=== PATIENT | female | born 1945 | race Caucasian/White ===

== ENCOUNTER 2018-01-30 07:13 | Inpatient (IN) | payer MEDICARE, BC ==
[2018-01-30] MEDS ORDERED: Sodium Chloride 0.9% 10 ML Syringe FLUSH PRN (09:12)
--- NOTE | 2018-01-30 09:18 | EDM.PDOC ---
ED HPI GENERAL MEDICAL PROBLEM - General Time Seen by Provider: 01/30/18 07:45 Source of Information: Reports: Patient History Limitations: Reports: No Limitations - History of Present Illness INITIAL COMMENTS - FREE TEXT/NARRATIVE: According to patient she has been having cough with productive sputum, sore throat and has been running fever for past 1 wk now. She was seen at [facility] on Friday and reassured that her strep test was negative and advised salt water gargles.She has been running fever intermittently all week. Fever resolves with tylenol, but soon comes back, for the past 2 days has been feeling extremely tired and also weak. She claims she gets short of breath even to do her routine daily activities. No wheezing. She does have COPD. Has had very poor appetite. No chest pain or chest tightness. Duration: Week(s): (1), Getting Worse (cough) Location: Reports: Chest Severity: Moderate Improves with: Reports: None Worsens with: Reports: None Associated Symptoms: Reports: Fever/Chills, Weakness. Denies: Confusion, Chest Pain, Cough, Diaphoresis, Nausea/Vomiting, Rash, Seizure Treatments RAKE OPERATOR: Reports: Oxygen ED ROS GENERAL - Review of Systems Review Of Systems: See Below Constitutional: Reports: Fever, Chills, Malaise, Weakness HEENT: Reports: Rhinitis, Throat Pain. Denies: Ear Pain, Throat Swelling, Vision Change Respiratory: Reports: Shortness of Breath, Cough, Sputum. Denies: Wheezing, Pleuritic Chest Pain Cardiovascular: Denies: Chest Pain, Lightheadedness GI/Abdominal: Denies: Abdominal Pain, Nausea, Vomiting : Denies: Dysuria, Flank Pain, Frequency Musculoskeletal: Reports: Muscle Pain. Denies: Shoulder Pain, Arm Pain, Joint Pain, Joint Swelling Skin: Denies: Bruising, Pruritis, Rash Neurological: Denies: Confusion, Dizziness, Headache, Numbness, Tingling ED EXAM, GENERAL - Physical Exam Exam: See Below Exam Limited By: No Limitations General Appearance: Alert, WD/WN, No Apparent Distress, Other (ill appearance) Eye Exam: Bilateral Eye: EOMI, PERRL Ears: Normal External Exam, Normal Canal, Hearing Grossly Normal, Normal TMs Ear Exam: Bilateral Ear: Auricle Normal, Canal Normal, TM normal Nose: Normal Inspection, Normal Mucosa, No Blood Throat/Mouth: Normal Inspection, Normal Lips, Normal Teeth, Normal Gums, Normal Oropharynx, Normal Voice, No Airway Compromise Head: Atraumatic, Normocephalic Neck: Normal Inspection, Supple, Non-Tender, Full Range of Motion Respiratory/Chest: No Respiratory Distress, No Accessory Muscle Use, Chest Non- Tender, Decreased Breath Sounds (right base), Crackles (right bse, more so than left) Cardiovascular: Normal Peripheral Pulses, Regular Rate, Rhythm, No Edema, No Gallop, No JVD, No Murmur, No Rub Peripheral Pulses: 2+: Carotid (L), Carotid (R), Radial (L), Radial (R) GI/Abdominal: Normal Bowel Sounds, Soft, Non-Tender, No Organomegaly, No Distention, No Abnormal Bruit, No Mass Extremities: Normal Inspection, Normal Range of Motion, Non-Tender, Normal Capillary Refill, No Pedal Edema Neurological: Alert, Oriented, CN II-XII Intact, Normal Cognition, Normal Gait, Normal Reflexes, No Motor/Sensory Deficits Skin Exam: Warm, Intact, Cyanosis (pt does haev peripehral cyanosis of the tips of the fingers) Course - Vital Signs Text/Narrative:: Pt was appearing very ill. She does have decreased air entery right base.She did have peripheral cyanosis of the finger tips. her SPO2 on room air was around 65%, secondary to peripheral cyanosis. after warming the hand and starting oxygen at 4 litres/minute. Her peripheral cyanosis did improve and her SpO2 was around 94% and after few minutes patient feeling of shortness of breath improved.She also had temp of 101.6F. Pt's Chest xray does show right lower lobe infiltrate, consistent with RLL pneumonia. Her White count is 2.9. Her CMP appears stable other than mild elevation of transaminases which could be related to viral pneumonia. As her symptoms have got worse over the week, and considering patient symptoms and her diagnosis and her peripheral cyanosis with low SPO2 pt has been planned for admission. Blood culture drawn before antibiotics.Pt has been started on Iv zithroma and Rocephin. Also have started her on duonebs for SOB. Also will keep her on Oxygen to maintain her SPO2 over 92%. I do anticipate uneventful recovery. Once her SOB resolves and she can maintain her SPO2 Over 92 % on room air will plan on discharge. Pt agrees and understand the plan Last Recorded V/S: Last Vital Signs Temp 101.6 F H 01/30/18 08:15 Pulse 123 H 01/30/18 08:15 Resp 18 01/30/18 08:15 BP 118/87 01/30/18 08:15 Pulse Ox 65 L 01/30/18 08:15 - Orders/Labs/Meds Orders: Active Orders 24 hr Category Date Time Status Chest 2V [CR] Stat Exams 01/30/18 08:09 Taken CULTURE BLOOD [BC] Stat Lab 01/30/18 09:35 Received CULTURE STREP A CONFIRMATION [RM] Stat Lab 01/30/18 08:25 Results STREP SCRN A RAPID W CULT CONF [] Stat Lab 01/30/18 08:25 Results Medication Orders Albuterol/Ipratropium (Duoneb 3.0-0.5 Mg/3 Ml) 3 ml NEB Q6H ROSANGELA Azithromycin 500 mg/ Sodium (Chloride) 250 mls @ 250 mls/hr IV Q24H ROSANGELA Ceftriaxone Sodium 1 gm/ (Sodium Chloride) 50 mls @ 200 mls/hr IV Q24H ROSANGELA Sodium Chloride (Saline Flush) 10 ml FLUSH ASDIRECTED PRN PRN Reason: Keep Vein Open Labs: Laboratory Tests 01/30/18 01/30/18 01/30/18 Range/Units 08:25 08:25 08:25 WBC 2.9 L (4.0-11.0) K/uL RBC 4.25 (3.80-5.80) M/uL Hgb 12.9 (11.5-16.5) g/dL Hct 41.3 (37.0-47.0) % MCV 97 H (76-96) fL MCH 30.4 (27.0-32.0) pg MCHC 31.2 (31.0-35.0) g/dL RDW 14.7 (11.0-16.0) % Plt Count 150 (150-500) K/uL MPV 9.6 (6.0-10.0) fL Neut % (Auto) 76.7 H (45.0-70.0) % Lymph % (Auto) 13.4 L (20.0-40.0) % [place] % (Auto) 9.2 (3.0-10.0) % Eos % (Auto) 0.0 L (1.0-5.0) % Baso % (Auto) 0.7 H (0.0-0.5) % Neut # (Auto) 2.24 (2.00-7.50) K/uL Lymph # (Auto) 0.39 L (1.50-4.00) K/uL [place] # (Auto) 0.27 (0.20-0.80) K/uL Eos # (Auto) 0.00 L (0.04-0.40) K/uL Baso # (Auto) 0.02 (0.02-0.10) K/uL Sodium 139 (136-145) mmol/L Potassium 3.4 L (3.5-5.1) mmol/L Chloride 96 L (98-107) mmol/L Carbon Dioxide 33.7 H (21.0-32.0) mmol/L Anion Gap 12.7 (5.0-15.0) mmol/L BUN 29 H (8-26) mg/dL Creatinine 0.98 (0.55-1.02) mg/dL Est Cr Clr Drug Dosing 44.81 mL/min Estimated GFR (MDRD) 56 L (>60) MLS/MIN BUN/Creatinine Ratio 29.6 H (6-25) Glucose 123 H (74-100) mg/dL Lactic Acid 1.30 (0.90-1.70) mmol/L Calcium 7.8 L (8.5-10.1) mg/dL Total Bilirubin 0.7 (0.0-1.0) mg/dL AST 71 H (15-37) U/L ALT 76 (12-78) U/L Alkaline Phosphatase 145 H (46-116) U/L Total Protein 6.8 (6.4-8.2) g/dL Albumin 3.3 L (3.4-5.0) g/dL Globulin 3.5 (2.2-4.2) g/dL Albumin/Globulin Ratio 0.9 (0.8-2.0) Meds: Medications Generic Name Dose Route Start Last Admin Trade Name Freq PRN Reason Stop Dose Admin Albuterol/Ipratropium 3 ml 01/30/18 09:30 Duoneb 3.0-0.5 Mg/3 Ml NEB Q6H ROSANGELA Azithromycin 500 mg/ Sodium 250 mls @ 250 mls/hr 01/30/18 09:30 Chloride IV Q24H [facility] Ceftriaxone Sodium 1 gm/ 50 mls @ 200 mls/hr 01/30/18 09:30 Sodium Chloride IV Q24H [facility] Sodium Chloride 10 ml 01/30/18 09:12 Saline Flush FLUSH ASDIRECTED PRN Keep Vein Open Departure - Departure Time of Disposition: 09:00 Disposition: Admitted As Inpatient 67 Condition: Fair Clinical Impression: Pneumonia involving right lung, Hypoxia - Discharge Information - Problem List & Annotations (1) Pneumonia involving right lung SNOMED Code(s): 952757496 Code(s): J18.9 - PNEUMONIA, UNSPECIFIED ORGANISM Status: Acute Current Visit: Yes - Problem List Review Problem List Initiated/Reviewed/Updated: Yes - My Orders Last 24 Hours: My Active Orders 01/30/18 08:09 Chest 2V [CR] Stat 01/30/18 08:25 CULTURE STREP A CONFIRMATION [RM] Stat STREP SCRN A RAPID W CULT CONF [RM] Stat 01/30/18 09:35 CULTURE BLOOD [BC] Stat - Assessment/Plan Last 24 Hours: My Active Orders 01/30/18 08:09 Chest 2V [CR] Stat 01/30/18 08:25 CULTURE STREP A CONFIRMATION [RM] Stat STREP SCRN A RAPID W CULT CONF [RM] Stat 01/30/18 09:35 CULTURE BLOOD [BC] Stat Assessment:: Right lower lobe pneumonia Hypoxia Plan: Pt was appearing very ill. She does have decreased air entery right base.She did have peripheral cyanosis of the finger tips. her SPO2 on room air was around 65%, secondary to peripheral cyanosis. after warming the hand and starting oxygen at 4 litres/minute. Her peripheral cyanosis did improve and her SpO2 was around 94% and after few minutes patient feeling of shortness of breath improved.She also had temp of 101.6F. Pt's Chest xray does show right lower lobe infiltrate, consistent with RLL pneumonia. Her White count is 2.9. Her CMP appears stable other than mild elevation of transaminases which could be related to viral pneumonia. As her symptoms have got worse over the week, and considering patient symptoms and her diagnosis and her peripheral cyanosis with low SPO2 pt has been planned for admission. Blood culture drawn before antibiotics.Pt has been started on Iv zithroma and Rocephin. Also have started her on duonebs for SOB. Also will keep her on Oxygen to maintain her SPO2 over 92%. I do anticipate uneventful recovery. Once her SOB resolves and she can maintain her SPO2 Over 92 % on room air will plan on discharge. Pt agrees and understand the plan
[2018-01-30] MEDS: Sodium Chloride 0.9% 1,000 ML IV SCH ×2 (10:18→21:26)
[2018-01-30] MEDS: Albuterol/Ipratropium 3.0-0.5 MG/3 ML Neb Soln NEB SCH ×3 (10:52→21:26)
[2018-01-30] MEDS: cefTRIAXone 1 GM in Sodium Chloride 0.9% 50 ML IV SCH (10:53)
[2018-01-30] MEDS: Acetaminophen 325 MG Tab PO PRN ×2 (10:57→21:33)
[2018-01-30] MEDS: Azithromycin 500 MG in Sodium Chloride 0.9% 250 ML IV SCH (11:12)
--- NOTE | 2018-01-30 11:17 | CR ---
DATE OF SERVICE: 01/30/2018 CLINICAL DATA: Cough. PA AND LATERAL CHEST: No priors. The heart is mildly enlarged. There is calcification of the aortic arch. There is increased density in the right lung base consistent with infiltrate or atelectasis. Pneumonia should be considered. No pneumothorax. No pleural effusions. [id number] [facility]
[2018-01-31] MEDS: Acetaminophen 325 MG Tab PO PRN ×3 (03:02→22:55)
[2018-01-31] MEDS: Albuterol/Ipratropium 3.0-0.5 MG/3 ML Neb Soln NEB SCH ×6 (03:03→21:00)
[2018-01-31] MEDS ORDERED: methylPREDNISolone Sodium Succinate 125 MG/2 ML SDV IVPUSH ONE (08:04)
[2018-01-31] MEDS: Levothyroxine 75 MCG Tab PO SCH (08:29)
[2018-01-31] MEDS: cefTRIAXone 1 GM in Sodium Chloride 0.9% 50 ML IV SCH (08:34)
[2018-01-31] MEDS: Azithromycin 500 MG in Sodium Chloride 0.9% 250 ML IV SCH (09:15)
[2018-01-31] MEDS: Potassium Chloride 20 MEQ Tab.ER PO SCH (16:43)
[2018-02-01] MEDS: Albuterol/Ipratropium 3.0-0.5 MG/3 ML Neb Soln NEB SCH ×6 (05:50→22:23)
[2018-02-01] MEDS: predniSONE 20 MG Tab PO SCH (06:48)
[2018-02-01] MEDS: Levothyroxine 75 MCG Tab PO SCH (06:49)
[2018-02-01] MEDS ORDERED: Furosemide 20 MG Tab PO ONE (10:25)
[2018-02-01] MEDS: Azithromycin 250 MG Tab PO SCH (10:33)
[2018-02-01] MEDS: Potassium Chloride 20 MEQ Tab.ER PO SCH (10:33)
[2018-02-01] MEDS: Acetaminophen 325 MG Tab PO PRN ×2 (10:33→22:26)
[2018-02-01] MEDS: Hydrochlorothiazide 25 MG Tab PO SCH (10:40)
[2018-02-02] MEDS: Albuterol/Ipratropium 3.0-0.5 MG/3 ML Neb Soln NEB SCH ×3 (05:38→15:22)
[2018-02-02] MEDS: Levothyroxine 75 MCG Tab PO SCH (06:36)
[2018-02-02] MEDS: predniSONE 20 MG Tab PO SCH (08:06)
[2018-02-02] MEDS: Azithromycin 250 MG Tab PO SCH (08:06)
[2018-02-02] MEDS: Potassium Chloride 20 MEQ Tab.ER PO SCH (08:07)
[2018-02-02] MEDS: Hydrochlorothiazide 25 MG Tab PO SCH (08:07)
[2018-02-02] MEDS ORDERED: Furosemide 20 MG Tab ONE (09:30)
[2018-02-02] MEDS ORDERED: Iopamidol 755 Mg/ML 100 ML Bottle IV PRN (11:26)
[2018-02-02] MEDS ORDERED: Sodium Chloride 0.9% 50 ML SDV FLUSH SCH (11:30)
--- NOTE | 2018-02-02 14:25 | CR ---
DATE OF SERVICE: 02/02/18 CLINICAL DATA: pneumonia PA AND LATERAL CHEST: Comparison is made to a prior exam dated 01/30/18. The heart size is stable. The lungs remain hyperexpanded. There are mild interstitial changes in both lower lungs. There is some minimal increased density in the right lung base, adjacent to the right hemidiaphragm, consistent with basilar atelectasis or infiltrate. No pneumothorax. No pleural effusions. [id number] [facility]
--- NOTE | 2018-02-02 15:09 | CT ---
DATE OF SERVICE: 02/02/18 CLINICAL DATA: SOB ENHANCED CHEST CT: Multislice acquisition through the chest with IV contrast was performed. No priors. No evidence of PE. No pneumothorax. No pleural effusions. No aortic aneurysm or dissection. There are mild emphysematous changes throughout both lungs. There is a 6 mm subpleural nodule within the right middle lobe just anterior to the major fissure. There are multiple other smaller subpleural nodules within the right middle lobe. There is a 6 mm pleural-based nodule within the right lower lobe posteriorly. There is also an ill-defined nodular density within the right lower lobe posteriorly measuring approximately 4 to 5 mm in size. There are linear densities in both lung bases consistent with linear atelectasis or fibrosis. There is an area of consolidation in the right costophrenic angle. This may represent atelectasis. Pneumonia should be considered. The lungs are otherwise clear. The heart size is normal. There is a small pericardial effusion. No hilar or mediastinal adenopathy. There is mural thickening throughout the mid and distal esophagus. Esophagitis should be considered. No other significant findings. IMPRESSION: 1) Multiple lung nodules as discussed above. Three to six month followup CT is recommended. 2) Area of consolidation in right costophrenic angle. Pneumonia should be considered. 3) Mural thickening mid and distal esophagus. Esophagitis should be considered. 4) Other findings as discussed above. [id number] [facility]
[2018-02-02] MEDS ORDERED: Furosemide 20 MG Tab PO SCH (16:00)
--- NOTE | 2018-02-02 16:24 | PCM.DCSUM1 ---
Discharge Summary - Discharge Data Discharge Date: 02/02/18 Discharge Disposition: DC/Tfer W/I Hosp To Swing Condition: Good - Discharge Diagnosis/Problem(s) (1) Weakness SNOMED Code(s): 38151667 ICD Code: R53.1 - WEAKNESS Status: Acute Priority: High Current Visit: Yes (2) Shortness of breath on exertion SNOMED Code(s): 92520343 ICD Code: R06.02 - SHORTNESS OF BREATH Status: Acute Priority: High Current Visit: Yes (3) Hypoxia SNOMED Code(s): 160597100 ICD Code: R09.02 - HYPOXEMIA Status: Acute Priority: High Current Visit : Yes (4) Pneumonia involving right lung SNOMED Code(s): 788841842 ICD Code: J18.9 - PNEUMONIA, UNSPECIFIED ORGANISM Status: Acute Priority : High Current Visit: Yes Qualifiers: Pneumonia type: due to unspecified organism Lung location: unspecified part of lung Qualified Code(s): J18.9 - Pneumonia, unspecified organism - Patient Instructions Diet: Usual Diet as Tolerated Activity: As Tolerated - Discharge Plan Referrals: Sophie Gannon PA-C [Primary Care Provider] - - Discharge Summary/Plan Comment DC Time >30 min.: Yes Discharge Summary/Plan Comment: Patient will be transferred to Swing Bed for further care and management of hypoxia on exertion affecting ADL's. Patient has generalized weakness and deconditioning. - Patient Data Vitals - Most Recent: Last Vital Signs Temp 36.7 C 02/02/18 14:00 Pulse 87 02/02/18 14:00 Resp 18 02/02/18 14:00 BP 124/69 02/02/18 14:00 Pulse Ox 90 L 02/02/18 14:00 Weight - Most Recent: 81.284 kg I&O - Last 24 hours: Intake & Output 02/02/18 02/02/18 02/02/18 06:59 14:59 22:59 Intake Total 290 200 Output Total 1750 950 250 Balance -1460 -750 -250 Lab Results - Last 24 hrs: Laboratory Results - last 24 hr 02/02/18 02/02/18 02/02/18 Range/Units 07:10 07:10 07:10 WBC 3.9 L (4.0-11.0) K/uL RBC 4.24 (3.80-5.80) M/uL Hgb 12.4 (11.5-16.5) g/dL Hct 41.0 (37.0-47.0) % MCV 97 H (76-96) fL MCH 29.2 (27.0-32.0) pg MCHC 30.2 L (31.0-35.0) g/dL RDW 14.1 (11.0-16.0) % Plt Count 161 D (150-500) K/uL MPV 9.5 (6.0-10.0) fL Neut % (Auto) 63.3 (45.0-70.0) % Lymph % (Auto) 28.0 (20.0-40.0) % [place] % (Auto) 8.1 (3.0-10.0) % Eos % (Auto) 0.3 L (1.0-5.0) % Baso % (Auto) 0.3 (0.0-0.5) % Neut # (Auto) 2.49 (2.00-7.50) K/uL Lymph # (Auto) 1.10 L (1.50-4.00) K/uL [place] # (Auto) 0.32 (0.20-0.80) K/uL Eos # (Auto) 0.01 L (0.04-0.40) K/uL Baso # (Auto) 0.01 L (0.02-0.10) K/uL D-Dimer, Quantitative 1050 H (0-400) ng/mL Sodium 139 (136-145) mmol/L Potassium 3.9 (3.5-5.1) mmol/L Chloride 97 L (98-107) mmol/L Carbon Dioxide 37.7 H (21.0-32.0) mmol/L Anion Gap 8.2 (5.0-15.0) mmol/L BUN 23 D (8-26) mg/dL Creatinine 0.78 D (0.55-1.02) mg/dL Est Cr Clr Drug Dosing 56.30 mL/min Estimated GFR (MDRD) > 60 (>60) MLS/MIN BUN/Creatinine Ratio 29.5 H (6-25) Glucose 98 (74-100) mg/dL Calcium 8.1 L (8.5-10.1) mg/dL MARIO Results - Last 24 hrs: Microbiology 01/30/18 09:35 Aerobic Blood Culture - Preliminary Blood NO GROWTH AFTER 3 DAYS Anaerobic Blood Culture - Preliminary NO GROWTH AFTER 3 DAYS Med Orders - Current: Current Medications Acetaminophen (Tylenol) 650 mg PO Q6H PRN PRN Reason: Fever Last Admin: 02/01/18 22:26 Dose: 650 mg Albuterol/Ipratropium (Duoneb 3.0-0.5 Mg/3 Ml) 3 ml NEB Q6H ROSANGELA Last Admin: 02/02/18 15:22 Dose: 3 ml Azithromycin (Zithromax) 250 mg PO DAILY [facility] Last Admin: 02/02/18 08:06 Dose: 250 mg Furosemide (Lasix) 20 mg PO BIDDIURETIC ROSANGELA Last Admin: 02/02/18 15:22 Dose: 20 mg Hydrochlorothiazide (Hydrochlorothiazide) 25 mg PO DAILY [facility] Last Admin: 02/02/18 08:07 Dose: 25 mg Iopamidol (Isovue-370 (76%)) 100 ml IV ASDIRECTED PRN PRN Reason: RADIOLOGY EXAM Stop: 02/02/18 18:00 Levothyroxine Sodium (Levothyroxine) 75 mcg PO ACBREAKFAST [facility] Last Admin: 02/02/18 06:36 Dose: 75 mcg Potassium Chloride (Klor-Con M20) 20 meq PO DAILY [facility] Last Admin: 02/02/18 08:07 Dose: 20 meq Prednisone (Prednisone) 40 mg PO WITHBREAKFAST [facility] Last Admin: 02/02/18 08:06 Dose: 40 mg Sodium Chloride (Saline Flush) 10 ml FLUSH ASDIRECTED PRN PRN Reason: Keep Vein Open Sodium Chloride (Normal Saline) 50 ml FLUSH ONETIME [facility] Stop: 02/02/18 18:00 Discontinued Medications Furosemide (Lasix) 20 mg PO ONETIME ONE Stop: 02/01/18 10:26 Last Admin: 02/01/18 10:39 Dose: 20 mg Furosemide (Lasix) Confirm Administered Dose 20 mg .ROUTE .STK-MED ONE Stop: 02/02/18 09:31 Last Admin: 02/02/18 10:31 Dose: 20 mg Azithromycin 500 mg/ Sodium (Chloride) 250 mls @ 250 mls/hr IV Q24H [facility] Last Admin: 01/31/18 09:15 Dose: 250 mls/hr Ceftriaxone Sodium 1 gm/ (Sodium Chloride) 50 mls @ 200 mls/hr IV Q24H ROSANGELA Last Admin: 01/31/18 08:34 Dose: 200 mls/hr Sodium Chloride (Normal Saline) 1,000 mls @ 30 mls/hr IV ASDIRECTED [facility] Last Admin: 01/30/18 21:26 Dose: 30 mls/hr Methylprednisolone Sodium Succinate (Solu-Medrol) 125 mg IVPUSH ONETIME ONE Stop: 01/31/18 08:05 Last Admin: 01/31/18 08:28 Dose: 125 mg
== END 2018-02-02 20:27 | disposition swing bed (61) | DRG 195 ==
LOC: LB.ED 07:13 → LB.MS 09:12 → UNDOADMIN 09:27 → LB.MS 09:27
PROVIDERS: ADMIT Family Medicine; ATTEND Family Medicine
DX: J18.9 Pneumonia, unspecified organism (principal); R09.02 Hypoxemia; R23.0 Cyanosis; R50.9 Fever, unspecified; R53.1 Weakness; R06.02 Shortness of breath
CPT/HCPCS: 36415; 71046; 71260; 80048; 80053; 83605; 83880; 85025; 85379; 86140; 87040; 87081; 87430; 87804; 99285; A9270-GY; J0456; J0696; J2930; J7040; J7050; J7620

== ENCOUNTER 2018-02-02 16:17 | Inpatient (IN) | payer MEDICARE, BC ==
--- NOTE | 2018-02-02 20:30 | PCM.HP ---
H&P History of Present Illness - General Date of Service: 02/02/18 Admit Problem/Dx: Admission Diagnosis/Problem Admission Diagnosis/Problem Weakness Source of Information: Patient, Old Records History Limitations: Reports: No Limitations - History of Present Illness Initial Comments - Free Text/Narative: This is a pleasant 73yo F admitted to swing bed for generalized weakness and management of COPD with oxygen desaturation in the 60's with exertion. Onset of Symptoms: Reports: Unknown/Unsure Duration of Symptoms: Reports: Constant Location: Reports: Generalized Severity: Moderate Improves with: Reports: Rest Worsens with: Reports: Movement Associated Symptoms: Reports: Shortness of Breath, Weakness - Related Data Allergies/Adverse Reactions: Allergies Allergy/AdvReac Type Severity Reaction Status Date / Time No Known Allergies Allergy Verified 02/02/18 16:36 Home Medications: Home Meds Acetaminophen [Tylenol] 650 mg PO Q6H PRN tablet 02/02/18 [Rx] Albuterol/Ipratropium [DuoNeb 3.0-0.5 MG/3 ML] 3 ml NEB Q6H neb 02/02/18 [Rx] Azithromycin [Zithromax] 250 mg PO DAILY tablet 02/02/18 [Rx] Furosemide [Lasix] 20 mg PO BIDDIURETIC tablet 02/02/18 [Rx] Hydrochlorothiazide 25 mg PO DAILY tablet 02/02/18 [Rx] Levothyroxine 75 mcg PO ACBREAKFAST tablet 02/02/18 [Rx] Potassium Chloride [Klor-Con M20] 20 meq PO DAILY tab.er 02/02/18 [Rx] Prednisone [IJD: predniSONE] 80 mg PO WITHBREAKFAST tablet 02/02/18 [Rx] Past Medical History HEENT History: Reports: Impaired Vision Respiratory History: Reports: Pneumonia, Recurrent Dermatologic History: Reports: Eczema - Past Surgical History Head Surgeries/Procedures: Reports: None HEENT Surgical History: Reports: None Social & Family History - Family History Family Medical History: Noncontributory - Tobacco Use Smoking Status *Q: Never Smoker Second Hand Smoke Exposure: No - Caffeine Use Caffeine Use: Reports: Coffee - Recreational Drug Use Recreational Drug Use: No H&P Review of Systems - Review of Systems: Review Of Systems: ROS reveals no pertinent complaints other than HPI. Exam - Exam Exam: See Below - Vital Signs Vital Signs: Last Vital Signs Temp 36.2 C 02/02/18 18:10 Pulse 97 02/02/18 18:10 Resp 18 02/02/18 18:10 BP 115/71 02/02/18 18:10 Pulse Ox 93 L 02/02/18 18:10 Weight: 81.284 kg - Exam Quality Assessment: Supplemental Oxygen General: Alert, Oriented, Cooperative HEENT: PERRLA, Conjunctiva Clear, EACs Clear, EOMI, Hearing Intact Neck: Supple, Trachea Midline Lungs: Normal Respiratory Effort, Decreased Breath Sounds Cardiovascular: Regular Rate, Regular Rhythm GI/Abdominal Exam: Normal Bowel Sounds, Soft, Non-Tender Back Exam: Normal Inspection Extremities: Normal Inspection Peripheral Pulses: 2+: Dorsalis Pedis (L), Dorsalis Pedis (R) Skin: Warm, Dry, Intact Neurological: Cranial Nerves Intact, Reflexes Equal Bilateral - Problem List (1) Hypoxia SNOMED Code(s): 259404059 ICD Code: R09.02 - HYPOXEMIA Status: Acute Priority: High Current Visit : No (2) Pneumonia involving right lung SNOMED Code(s): 080113770 ICD Code: J18.9 - PNEUMONIA, UNSPECIFIED ORGANISM Status: Acute Priority : High Current Visit: No Qualifiers: Pneumonia type: due to unspecified organism Lung location: unspecified part of lung Qualified Code(s): J18.9 - Pneumonia, unspecified organism (3) Shortness of breath on exertion SNOMED Code(s): 75545322 ICD Code: R06.02 - SHORTNESS OF BREATH Status: Acute Priority: High Current Visit: No (4) Weakness SNOMED Code(s): 78197283 ICD Code: R53.1 - WEAKNESS Status: Acute Priority: High Current Visit: No Problem List Initiated/Reviewed/Updated: Yes Orders Last 24hrs: Active Orders 24 hr Category Date Time Status Patient Status Manage Transfer [TRANSFER] Routine ADT 02/02/18 16:25 Active Patient Status [ADT] Routine ADT 02/02/18 20:27 Active Consult to Washer And Capper Machine Operator [CONS] Routine Cons 02/02/18 20:27 Active Consult to Home Health [CONS] Routine Cons 02/02/18 20:27 Active Consult to Infection Prevention [CONS] Routine Cons 02/02/18 20:27 Active Consult to Egg Trayer [CONS] Routine Cons 02/02/18 20:27 Active OT Evaluation and Treatment [CONS] Routine Cons 02/02/18 20:27 Active PT Evaluation and Treatment [CONS] Routine Cons 02/02/18 20:27 Active Acetaminophen [Tylenol] Med 02/02/18 20:28 Ordered 650 mg PO Q6H PRN Albuterol/Ipratropium [DuoNeb 3.0-0.5 MG/3 ML] Med 02/02/18 20:30 Ordered 3 ml NEB Q6H Azithromycin [Zithromax] Med 02/03/18 08:00 Ordered 250 mg PO DAILY Furosemide [Lasix] Med 02/03/18 08:00 Ordered 20 mg PO BIDDIURETIC Hydrochlorothiazide Med 02/03/18 08:00 Ordered 25 mg PO DAILY Levothyroxine Med 02/03/18 07:00 Ordered 75 mcg PO ACBREAKFAST Potassium Chloride [Klor-Con M20] Med 02/03/18 08:00 Ordered 20 meq PO DAILY Tuberculin, PPD [Aplisol] Med 02/02/18 20:27 Once 5 unit IDERM ONETIME ONE predniSONE Med 02/03/18 07:00 Ordered 80 mg PO WITHBREAKFAST Medication Orders Acetaminophen (Tylenol) 650 mg PO Q6H PRN PRN Reason: Fever Albuterol/Ipratropium (Duoneb 3.0-0.5 Mg/3 Ml) 3 ml NEB Q6H ROSANGELA Azithromycin (Zithromax) 250 mg PO DAILY ROSANGELA Furosemide (Lasix) 20 mg PO BIDDIURETIC ROSANGELA Hydrochlorothiazide (Hydrochlorothiazide) 25 mg PO DAILY ROSANGELA Levothyroxine Sodium (Levothyroxine) 75 mcg PO ACBREAKFAST ROSANGELA Potassium Chloride (Klor-Con M20) 20 meq PO DAILY ROSANGELA Prednisone (Prednisone) 80 mg PO WITHBREAKFAST ROSANGELA Tuberculin PPD (Aplisol) 5 unit IDERM ONETIME ONE Stop: 02/02/18 20:28 Assessment/Plan Comment:: Monitoring hypoxia. PT/OT will continue working with patient for improved walking tolerance. Plan for home oxygen. Slow taper of prednisone.
[2018-02-02] MEDS: Albuterol/Ipratropium 3.0-0.5 MG/3 ML Neb Soln NEB SCH (21:17)
[2018-02-02] MEDS: Tuberculin, PPD 5 Units/0.1 ML 1 ML MDV IDERM ONE (21:39)
[2018-02-03] MEDS: Albuterol/Ipratropium 3.0-0.5 MG/3 ML Neb Soln NEB SCH ×4 (06:17→20:47)
[2018-02-03] MEDS: Acetaminophen 325 MG Tab PO PRN (06:28)
[2018-02-03] MEDS: predniSONE 20 MG Tab PO SCH (06:29)
[2018-02-03] MEDS: Levothyroxine 75 MCG Tab PO SCH (06:30)
[2018-02-03] MEDS ORDERED: Azithromycin 250 MG Tab PO SCH (08:00)
[2018-02-03] MEDS: Furosemide 20 MG Tab PO SCH ×2 (08:08→16:12)
[2018-02-03] MEDS: Hydrochlorothiazide 25 MG Tab PO SCH (08:08)
[2018-02-03] MEDS: Potassium Chloride 20 MEQ Tab.ER PO SCH (08:08)
--- NOTE | 2018-02-03 08:52 | PCM.SN ---
- Free Text/Narrative Note: Routine follow up with patient. Patient states she does feel a little more short of breath. Discussed change in prednisone dose. She was tapered from Solumedrol 125 to prednisone oral 40mg and discussed that we will increase prednisone to 80mg for a slower taper. Patient will start PT/OT today and further evaluation of exercise tolerance.
[2018-02-03] MEDS: Tuberculin, PPD 5 Units/0.1 ML 1 ML MDV IDERM ONE ×2 (14:59→15:02)
[2018-02-04] MEDS: Albuterol/Ipratropium 3.0-0.5 MG/3 ML Neb Soln NEB SCH ×4 (05:35→20:01)
[2018-02-04] MEDS: Levothyroxine 75 MCG Tab PO SCH (06:30)
[2018-02-04] MEDS: Furosemide 20 MG Tab PO SCH ×2 (08:26→15:56)
[2018-02-04] MEDS: predniSONE 20 MG Tab PO SCH (08:26)
[2018-02-04] MEDS: Potassium Chloride 20 MEQ Tab.ER PO SCH (08:26)
[2018-02-04] MEDS: Hydrochlorothiazide 25 MG Tab PO SCH (08:27)
--- NOTE | 2018-02-04 14:01 | PCM.SN ---
- Free Text/Narrative Note: Discussed with patient and met . Discussed plan of care, repeat Hg A1c after off prednisone for a while. Discussed diet and lifestyle modification. Counseled on oxygen and use and weaning.
[2018-02-05] MEDS: Albuterol/Ipratropium 3.0-0.5 MG/3 ML Neb Soln NEB SCH ×4 (02:16→20:25)
[2018-02-05] MEDS: Levothyroxine 75 MCG Tab PO SCH (06:35)
[2018-02-05] MEDS: Potassium Chloride 20 MEQ Tab.ER PO SCH (07:40)
[2018-02-05] MEDS: Furosemide 20 MG Tab PO SCH ×2 (07:40→15:22)
[2018-02-05] MEDS: predniSONE 20 MG Tab PO SCH (07:41)
[2018-02-05] MEDS: Hydrochlorothiazide 25 MG Tab PO SCH (07:41)
[2018-02-06] MEDS: Albuterol/Ipratropium 3.0-0.5 MG/3 ML Neb Soln NEB SCH ×4 (03:02→19:57)
[2018-02-06] MEDS: Levothyroxine 75 MCG Tab PO SCH (08:04)
[2018-02-06] MEDS: Furosemide 20 MG Tab PO SCH ×2 (08:04→16:20)
[2018-02-06] MEDS: Potassium Chloride 20 MEQ Tab.ER PO SCH (08:04)
[2018-02-06] MEDS: Hydrochlorothiazide 25 MG Tab PO SCH (08:05)
[2018-02-06] MEDS: predniSONE 20 MG Tab PO SCH ×2 (09:05→09:15)
[2018-02-07] MEDS: Albuterol/Ipratropium 3.0-0.5 MG/3 ML Neb Soln NEB SCH ×4 (06:29→19:35)
[2018-02-07] MEDS: Levothyroxine 75 MCG Tab PO SCH (06:46)
[2018-02-07] MEDS: predniSONE 20 MG Tab PO SCH (08:07)
[2018-02-07] MEDS: Potassium Chloride 20 MEQ Tab.ER PO SCH (08:08)
[2018-02-07] MEDS: Hydrochlorothiazide 25 MG Tab PO SCH (08:08)
[2018-02-07] MEDS: Furosemide 20 MG Tab PO SCH ×2 (08:08→15:58)
[2018-02-08] MEDS: Albuterol/Ipratropium 3.0-0.5 MG/3 ML Neb Soln NEB SCH ×4 (03:58→19:53)
[2018-02-08] MEDS: Levothyroxine 75 MCG Tab PO SCH (06:11)
[2018-02-08] MEDS: Potassium Chloride 20 MEQ Tab.ER PO SCH (07:08)
[2018-02-08] MEDS: Furosemide 20 MG Tab PO SCH ×2 (07:09→15:00)
[2018-02-08] MEDS: predniSONE 20 MG Tab PO SCH (07:10)
[2018-02-08] MEDS: Hydrochlorothiazide 25 MG Tab PO SCH (07:10)
[2018-02-08] MEDS: Acetaminophen 325 MG Tab PO PRN (19:53)
[2018-02-09] MEDS: Albuterol/Ipratropium 3.0-0.5 MG/3 ML Neb Soln NEB SCH ×2 (03:43→08:07)
[2018-02-09] MEDS: Levothyroxine 75 MCG Tab PO SCH (06:25)
[2018-02-09] MEDS: Furosemide 20 MG Tab PO SCH (08:07)
[2018-02-09] MEDS: Hydrochlorothiazide 25 MG Tab PO SCH (08:07)
[2018-02-09] MEDS: predniSONE 20 MG Tab PO SCH (08:07)
[2018-02-09] MEDS: Potassium Chloride 20 MEQ Tab.ER PO SCH (08:07)
--- NOTE | 2018-02-09 11:06 | PCM.DCSUM1 ---
Discharge Summary - Hospital Course HPI Initial Comments: This is a 73yo F who was admitted for acute respiratory failure, severe COPD exacerbation and hypoxia. Brief History: Patient improvement was steady but required swing bed monitoring and rehabilitation due to continued low oxygen saturation in the 60's. She has no history of home oxygen use but will require home oxygen due to lower oxygen saturation throughout her stay. Improvement steady but oxygen saturation is 86% at best on RA. - Discharge Data Discharge Date: 02/09/18 Discharge Disposition: Home, Self-Care 01 Condition: Good - Discharge Diagnosis/Problem(s) (1) Hypoxia SNOMED Code(s): 366231535 ICD Code: R09.02 - HYPOXEMIA Status: Acute Priority: High Current Visit : No (2) Pneumonia involving right lung SNOMED Code(s): 509222643 ICD Code: J18.9 - PNEUMONIA, UNSPECIFIED ORGANISM Status: Acute Priority : High Current Visit: No Qualifiers: Pneumonia type: due to unspecified organism Lung location: unspecified part of lung Qualified Code(s): J18.9 - Pneumonia, unspecified organism (3) Shortness of breath on exertion SNOMED Code(s): 49310904 ICD Code: R06.02 - SHORTNESS OF BREATH Status: Acute Priority: High Current Visit: No (4) Weakness SNOMED Code(s): 17791490 ICD Code: R53.1 - WEAKNESS Status: Acute Priority: High Current Visit: No - Patient Summary/Data Consults: Consultations 02/02/18 20:27 Consult to Watch And Clock Repairer [CONS] Routine Comment: Physician Instructions: Quantity: Consult to Home Health [CONS] Routine Comment: Physician Instructions: Consult to Infection Prevention [CONS] Routine Comment: Physician Instructions: Consult to Business Development [CONS] Routine Comment: Physician Instructions: OT Evaluation and Treatment [CONS] Routine Please Evaluate and Treat. OT Reason for Consult: ADL's This query below is only for informational purposes and is not editable. Admission Diagnosis/Problem: Weakness PT Evaluation and Treatment [CONS] Routine Please Evaluate and Treat. PT Reason for Consult: Ambulation This query below is only for informational purposes and is not editable. Admission Diagnosis/Problem: Weakness - Patient Instructions Diet: Usual Diet as Tolerated Activity: As Tolerated Driving: Do Not Drive - Discharge Plan Prescriptions/Med Rec: Albuterol/Ipratropium [DuoNeb 3.0-0.5 MG/3 ML] 3 ml NEB Q6H #30 neb predniSONE 40 mg PO WITHBREAKFAST #10 tablet Home Medications: Home Meds Acetaminophen [Tylenol] 650 mg PO Q6H PRN tablet 02/02/18 [Rx] Albuterol/Ipratropium [DuoNeb 3.0-0.5 MG/3 ML] 3 ml NEB Q6H neb 02/02/18 [Rx] Furosemide [Lasix] 20 mg PO BIDDIURETIC tablet 02/02/18 [Rx] Hydrochlorothiazide 25 mg PO DAILY tablet 02/02/18 [Rx] Levothyroxine 75 mcg PO ACBREAKFAST tablet 02/02/18 [Rx] Potassium Chloride [Klor-Con M20] 20 meq PO DAILY tab.er 02/02/18 [Rx] Prednisone [IJD: predniSONE] 80 mg PO WITHBREAKFAST tablet 02/02/18 [Rx] Albuterol/Ipratropium [DuoNeb 3.0-0.5 MG/3 ML] 3 ml NEB Q6H #30 neb 02/09/18 [Rx ] predniSONE 40 mg PO WITHBREAKFAST #10 tablet 02/09/18 [Rx] Patient Handouts: Albuterol; Ipratropium solution for inhalation, Prednisone tablets - Discharge Summary/Plan Comment DC Time >30 min.: Yes Discharge Summary/Plan Comment: Counseled on respiratory failure with COPD exacerbation. Discussed use of prednisone and use of continuous oxygen. This patient has severe COPD and requires continuous oxygen. Patient would benefit from a portable concentrator to allow greater motility and functioning. Patient will f/u in clinic this week for recheck. Continued on prednisone 40mg daily and duonebs as directed. - General Info Date of Service: 02/09/18 Functional Status: Reports: Pain Controlled, Tolerating Diet, Ambulating - Review of Systems General: Reports: Weakness HEENT: Reports: No Symptoms Pulmonary: Reports: Shortness of Breath Cardiovascular: Reports: No Symptoms Gastrointestinal: Reports: No Symptoms Genitourinary: Reports: No Symptoms Musculoskeletal: Reports: No Symptoms Skin: Reports: No Symptoms Neurological: Reports: No Symptoms - Patient Data Vitals - Most Recent: Last Vital Signs Temp 36.3 C 02/09/18 07:13 Pulse 67 02/09/18 07:13 Resp 16 02/09/18 07:13 BP 149/76 H 02/09/18 07:13 Pulse Ox 86 L 02/09/18 07:13 Weight - Most Recent: 77.564 kg Med Orders - Current: Current Medications Acetaminophen (Tylenol) 650 mg PO Q6H PRN PRN Reason: Fever Last Admin: 02/08/18 19:53 Dose: 650 mg Albuterol/Ipratropium (Duoneb 3.0-0.5 Mg/3 Ml) [address] [facility] Last Admin: 02/09/18 08:07 Dose: 3 ml Furosemide (Lasix) 20 mg PO BIDDIURETIC ROSANGELA Last Admin: 02/09/18 08:07 Dose: 20 mg Hydrochlorothiazide (Hydrochlorothiazide) [address] [facility] Last Admin: 02/09/18 08:07 Dose: 25 mg Levothyroxine Sodium (Levothyroxine) [address] [facility] Last Admin: 02/09/18 06:25 Dose: 75 mcg Potassium Chloride (Klor-Con M20) [address] [facility] Last Admin: 02/09/18 08:07 Dose: 20 meq Prednisone (Prednisone) 40 mg PO WITHBREAKFAST ROSANGELA Stop: 02/09/18 12:00 Last Admin: 02/09/18 08:07 Dose: 40 mg Discontinued Medications Azithromycin (Zithromax) [address] [facility] Last Admin: 02/03/18 08:08 Dose: 250 mg Prednisone (Prednisone) 80 mg PO WITHBREAKFAST ROSANGELA Last Admin: 02/06/18 09:05 Dose: Not Given Tuberculin PPD (Aplisol) 5 unit IDERM ONETIME ONE Stop: 02/02/18 20:28 Last Admin: 02/03/18 15:02 Dose: Not Given - Exam Quality Assessment: Reports: Supplemental Oxygen General: Reports: Alert, Oriented, Cooperative HEENT: Reports: Pupils Equal, Pupils Reactive, EOMI Neck: Reports: Supple Lungs: Reports: Clear to Auscultation, Normal Respiratory Effort, Decreased Breath Sounds Cardiovascular: Reports: Regular Rate, Regular Rhythm GI/Abdominal Exam: Normal Bowel Sounds, Soft, Non-Tender Back Exam: Reports: Normal Inspection Extremities: Normal Inspection
== END 2018-02-09 11:45 | disposition home or self-care (01) | DRG 947 ==
LOC: UNDOADMIN 16:17 → LB.MS 16:17
PROVIDERS: ADMIT Family Medicine; ATTEND Family Medicine
DX: R53.1 Weakness (principal); J96.01 Acute respiratory failure with hypoxia; J18.9 Pneumonia, unspecified organism; J44.0 Chronic obstructive pulmonary disease with (acute) lower respiratory infection; Z87.01 Personal history of pneumonia (recurrent); Z11.1 Encounter for screening for respiratory tuberculosis; Z99.81 Dependence on supplemental oxygen; H54.7 Unspecified visual loss; Z79.52 Long term (current) use of systemic steroids
CPT/HCPCS: 82962; 86580; 97110-GO; 97162-GP; 97165-GO; 97530-GO; 97530-GP; 97535-GO; A9270-GY; J7620

== ENCOUNTER 2021-03-14 10:59 | Emergency (ER) | payer MEDICARE ==
[2021-03-14] MEDS ORDERED: Albuterol 0.083% 2.5 MG/3 ML Neb Soln NEB ONE (11:27)
--- NOTE | 2021-03-14 11:28 | EDM.PDOC ---
ED HPI GENERAL MEDICAL PROBLEM - General Chief Complaint: Respiratory Problem Stated Complaint: COPD Time Seen by Provider: 03/14/21 11:25 Source of Information: Reports: Patient History Limitations: Reports: No Limitations - History of Present Illness INITIAL COMMENTS - FREE TEXT/NARRATIVE: patient with a h/o COPD - on 2 lit O2 at home - who presented to the ER with a c/o progressive SOB over 2-3 weeks. No CP, fever or cough. but reports that her SOB has been getting worse and is unable to move around as usual. Also reports b/l LEs swelling. Have used her inhalers at home but little to no benefit. She is also on HCLZ. - Related Data Allergies Allergy/AdvReac Type Severity Reaction Status Date / Time lisinopril AdvReac Cough Verified 03/14/21 11:21 Home Meds: Home Meds Acetaminophen [Tylenol] 650 mg PO Q6H PRN tablet 02/02/18 [Rx] Fluticasone Propion/Salmeterol [Advair 250-50 Diskus] 1 puff INH BID 08/08/19 [History] Albuterol Sulfate [Albuterol Sulfate Hfa] 2 inh INH Q4HR PRN 08/09/19 [History] Aspirin 81 mg PO DAILY 08/09/19 [History] Folic Acid 1 mg PO DAILY 08/09/19 [History] hydroCHLOROthiazide [Hydrochlorothiazide] 12.5 mg PO DAILY 08/09/19 [History] Albuterol/Ipratropium [Combivent Respimat] 1 puff INH QID PRN 03/14/21 [History] Furosemide [Lasix] 20 mg PO DAILY PRN 03/14/21 [History] Levothyroxine 75 mcg PO ASDIRECTED 03/14/21 [History] Levothyroxine [Synthroid] 88 mcg PO ASDIRECTED 03/14/21 [History] Tiotropium [place] [Spiriva Respimat] 1 puff INH DAILY 03/14/21 [History] Past Medical History HEENT History: Reports: Impaired Vision Respiratory History: Reports: Pneumonia, Recurrent Dermatologic History: Reports: Eczema - Past Surgical History Head Surgeries/Procedures: Reports: None HEENT Surgical History: Reports: None Social & Family History - Family History Family Medical History: No Pertinent Family History - Caffeine Use Caffeine Use: Reports: Coffee ED ROS GENERAL - Review of Systems Review Of Systems: See Below Constitutional: Reports: No Symptoms HEENT: Reports: No Symptoms Respiratory: Reports: Shortness of Breath Cardiovascular: Reports: Dyspnea on Exertion, Edema. Denies: Chest Pain GI/Abdominal: Reports: No Symptoms Musculoskeletal: Reports: No Symptoms Skin: Reports: No Symptoms Neurological: Reports: No Symptoms Psychiatric: Reports: Anxiety ED EXAM, GENERAL - Physical Exam Exam: See Below Exam Limited By: No Limitations General Appearance: Alert, WD/WN, No Apparent Distress Eye Exam: Bilateral Eye: EOMI Nose: Normal Inspection Neck: Normal Inspection Respiratory/Chest: Respiratory Distress, Decreased Breath Sounds, Rales (b/l basal) Cardiovascular: Tachycardia Back Exam: Normal Inspection Extremities: Normal Range of Motion, Non-Tender, Pedal Edema Neurological: Alert, Oriented, Normal Cognition, No Motor/Sensory Deficits Psychiatric: Normal Affect, Normal Mood Skin Exam: Warm #1 Interpretation Rhythm: NSR [place]: Normal P-Wave: Present QRS: Normal ST-T: Normal QT: Normal Course - Vital Signs Last Recorded V/S: Last Vital Signs Temp 37.3 C 03/14/21 11:00 Pulse 96 03/14/21 12:37 Resp 20 03/14/21 12:37 BP 118/84 03/14/21 11:00 Pulse Ox 96 03/14/21 12:37 - Orders/Labs/Meds Labs: Laboratory Tests 03/14/21 03/14/21 03/14/21 Range/Units 11:45 11:45 11:45 WBC 4.6 (4.0-11.0) K/uL RBC 3.86 (3.80-5.80) M/uL Hgb 11.1 L (11.5-16.5) g/dL Hct 35.0 L (37.0-47.0) % MCV 91 (76-96) fL MCH 28.8 (27.0-32.0) pg MCHC 31.7 (31.0-35.0) g/dL RDW 14.0 (11.0-16.0) % Plt Count 147 L (150-500) K/uL MPV 10.8 H (6.0-10.0) fL D-Dimer, Quantitative 663 H (0-400) ng/mL Sodium 142 (136-145) mmol/L Potassium 3.3 L (3.5-5.1) mmol/L Chloride 97 L (98-107) mmol/L Carbon Dioxide 34.7 H (21.0-32.0) mmol/L Anion Gap 13.6 (5.0-15.0) mmol/L BUN 18 (8-26) mg/dL Creatinine 0.73 (0.55-1.02) mg/dL Est Cr Clr Drug Dosing 57.50 mL/min Estimated GFR (MDRD) > 60 (>60) MLS/MIN BUN/Creatinine Ratio 24.7 (6-25) Glucose 130 H (74-100) mg/dL Calcium Not Reportable Troponin I (0.000-0.060) ng/mL B-Natriuretic Peptide 84 D (0-450) pg/mL TSH, Ultra Sensitive (0.358-3.740) uIU/mL 03/14/21 03/14/21 Range/Units 11:45 12:18 WBC (4.0-11.0) K/uL RBC (3.80-5.80) M/uL Hgb (11.5-16.5) g/dL Hct (37.0-47.0) % MCV (76-96) fL MCH (27.0-32.0) pg MCHC (31.0-35.0) g/dL RDW (11.0-16.0) % Plt Count (150-500) K/uL MPV (6.0-10.0) fL D-Dimer, Quantitative (0-400) ng/mL Sodium (136-145) mmol/L Potassium (3.5-5.1) mmol/L Chloride (98-107) mmol/L Carbon Dioxide (21.0-32.0) mmol/L Anion Gap (5.0-15.0) mmol/L BUN (8-26) mg/dL Creatinine (0.55-1.02) mg/dL Est Cr Clr Drug Dosing mL/min Estimated GFR (MDRD) (>60) MLS/MIN BUN/Creatinine Ratio (6-25) Glucose (74-100) mg/dL Calcium Troponin I < 0.017 (0.000-0.060) ng/mL B-Natriuretic Peptide (0-450) pg/mL TSH, Ultra Sensitive 0.438 D (0.358-3.740) uIU/mL Meds: Medications Discontinued Medications Generic Name Dose Route Start Last Admin Trade Name Freq PRN Reason Stop Dose Admin Albuterol 2.5 mg 03/14/21 11:27 03/14/21 11:32 Albuterol 0.083% 2.5 Mg/3 Ml Neb Soln NEB 03/14/21 11:28 2.5 mg ONETIME ONE Administration Albuterol Confirm 03/14/21 11:35 03/14/21 11:51 Albuterol 0.083% 2.5 Mg/3 Ml Neb Soln Administered 03/14/21 11:36 Not Given Dose 2.5 mg .ROUTE .STK-MED ONE Furosemide 20 mg 03/14/21 12:19 03/14/21 12:27 Furosemide 40 Mg/4 Ml Vial IVPUSH 03/14/21 12:20 20 mg NOW ONE Administration Furosemide Confirm 03/14/21 12:31 03/14/21 12:30 Furosemide 40 Mg/4 Ml Vial Administered 03/14/21 12:32 Not Given Dose 40 mg .ROUTE .STK-MED ONE Iopamidol 100 ml 03/14/21 12:45 03/14/21 13:25 Iopamidol 755 Mg/Ml 100 Ml Bottle IV 03/14/21 23:59 100 ml ASDIRECTED ROSANGELA Administration Sodium Chloride 50 ml 03/14/21 12:36 03/14/21 13:25 Sodium Chloride 0.9% 50 Ml Sdv FLUSH 03/14/21 12:37 50 ml ONETIME ONE Administration - Re-Assessments/Exams Free Text/Narrative Re-Assessment/Exam: labs were ordered - significant for elevation in ddimer otherwise, normal trop CT chest w PE protocol - negative for PE, but showed COPD changes in both lungs. a neb was given, and a small dose of lasix - due to worsening of b/l LEs edema - patient has a UOP while in the ER and reports some improvement in breathing status. Departure - Departure Time of Disposition: 13:30 Disposition: Home, Self-Care 01 Condition: Good Clinical Impression: Shortness of breath on exertion COPD (chronic obstructive pulmonary disease) Qualifiers: COPD type: emphysema Emphysema type: centrilobular Qualified Code(s): J43.2 - Centrilobular emphysema - Discharge Information *PRESCRIPTION DRUG MONITORING PROGRAM REVIEWED*: Not Applicable *COPY OF PRESCRIPTION DRUG MONITORING REPORT IN PATIENT [place]: Not Applicable Referrals: PCP,None [Primary Care Provider] - Forms: ED Department Discharge Sepsis Event Note (ED) - Evaluation Sepsis Screening Result: Possible Sepsis Risk - Problem List & Annotations (1) COPD (chronic obstructive pulmonary disease) SNOMED Code(s): 84488831 Code(s): J44.9 - CHRONIC OBSTRUCTIVE PULMONARY DISEASE, UNSPECIFIED Status: Acute Priority: Low Qualifiers: COPD type: emphysema Emphysema type: centrilobular Qualified Code(s): J43.2 - Centrilobular emphysema (2) Shortness of breath on exertion SNOMED Code(s): 87685636 Code(s): R06.02 - SHORTNESS OF BREATH Status: Acute Priority: High - Problem List Review Problem List Initiated/Reviewed/Updated: Yes - Assessment/Plan Plan: resume home meds as before follow up with your PCP as per yoru appointment take your inhalers as prescribed return to the ER if symptoms got worse or any concerns
[2021-03-14] MEDS ORDERED: Albuterol 0.083% 2.5 MG/3 ML Neb Soln ONE (11:35)
[2021-03-14] MEDS ORDERED: Furosemide 40 MG/4 ML VIAL IVPUSH ONE (12:19)
[2021-03-14] MEDS ORDERED: Furosemide 40 MG/4 ML VIAL ONE (12:31)
[2021-03-14] MEDS ORDERED: Sodium Chloride 0.9% 50 ML SDV FLUSH ONE (12:36)
[2021-03-14] MEDS ORDERED: Iopamidol 755 Mg/ML 100 ML Bottle IV SCH (12:45)
--- NOTE | 2021-03-14 14:13 | CT ---
DATE OF SERVICE: 03/14/2021 CLINICAL DATA: R/O PE, elevated D-dimer Enhanced chest CT: Multi slice axial acquisition through the chest with IV contrast was performed. No priors. No evidence of PE. No pneumothorax. No pleural effusions. The no aortic aneurysm or dissection. There are emphysematous changes throughout both lungs. There are subtle ground- glass opacities within the left upper lobe. Pneumonia/pneumonitis should be considered. There are mild atelectatic changes in both lung bases. The lungs are otherwise clear. The heart size is normal. Mild coronary artery calcifications. No significant pericardial effusion. There is an enlarged lymph node in the AP window on the left. No other hilar or mediastinal adenopathy. There is a small hiatal hernia. There is mural thickening of the distal esophagus. Esophagitis should be considered. There is a low-density lesion in the left kidney consistent with a cyst. There is degenerative disc disease throughout the thoracic spine. No other significant findings. MTDD
--- NOTE | 2021-03-15 11:15 | CR ---
Date of Service: 03/14/21 Clinical Data: SOB PORTABLE AP CHEST: Comparison is made to a prior exam dated 02/02/18. The heart is enlarged. The pulmonary vasculature is prominent with cephalization of flow consistent with pulmonary venous congestion. The proximal pulmonary arteries appear prominent suggesting pulmonary hypertension. There is increased density in the right lung base consistent with basilar atelectasis or infiltrate. Pneumonia should be considered. There are mild interstitial changes throughout both lungs. The lungs are otherwise clear. No pneumothorax. No pleural effusions. [id number] [facility]
== END 2021-03-14 14:45 | disposition home or self-care (01) ==
LOC: LB.ED 10:59
DX: J43.2 Centrilobular emphysema (principal); Z88.8 Allergy status to other drugs, medicaments and biological substances; Z79.82 Long term (current) use of aspirin; Z79.899 Other long term (current) drug therapy
CPT/HCPCS: 36415; 71045; 71260; 80048; 83880; 84443; 84484; 85027; 85379; 93005; 96374; 99285-25; J1940; Q9967

== ENCOUNTER 2024-06-22 19:40 | Emergency (ER) | payer MEDICARE ==
[~2024-06-22 19:40] MED LIST: Ciprofloxacin 500 MG Tab ONE; metroNIDAZOLE 500 MG Tab ONE
== END 2024-06-22 20:35 | disposition home or self-care (01) ==
LOC: LB.ED 19:40 → SUPCPDRO 19:40 → LB.ED 20:35
DX: K57.92 Diverticulitis of intestine, part unspecified, without perforation or abscess without bleeding (principal); J44.9 Chronic obstructive pulmonary disease, unspecified; I10 Essential (primary) hypertension; Z87.891 Personal history of nicotine dependence; Z79.82 Long term (current) use of aspirin; Z79.899 Other long term (current) drug therapy; Z88.8 Allergy status to other drugs, medicaments and biological substances
CPT/HCPCS: 99283; A9270